=== PATIENT | female | born 2000 | race Asian ===

== ENCOUNTER 2020-12-03 10:45 | Emergency (ER) | payer BC ==
[2020-12-03] MEDS ORDERED: Oxymetazoline HCl 0.05% ( 15 ML ) ONE (11:23)
[2020-12-03 11:28] LABS: #Eosinphils 0.1 10x3/uL (0.0-0.5); #Monocytes 0.5 10x3/uL (0.0-1.1); #Neutrophils 2.7 10x3/uL (1.5-8.4); %Basophils 0.4 % (0.0-2.0); %Eosinophils 2.6 % (0.0-6.0); %Lymphocytes 36.8 % (18.0-47.0); %Monocytes 8.8 % (0.0-10.0); Hemoglobin 10.6 g/dL (12.0-15.5); Mean Corpuscular HGB CONC 31.5 g/dL (32.0-36.0); Mean Corpuscular Hemoglobin 22.8 pg (27.0-33.0); Mean Corpuscular Volume 72.4 fl (81.6-98.3); Mean Platelet Volume 10.1 fl (7.4-10.4); Platelet Count 388 10x3/uL (150-450); RBC Distribution Width 15.5 % (11.5-14.5); Red Blood Cell (RBC) Count 4.64 10x6/uL (3.90-5.03); White Blood Cell (WBC) Count 5.4 10x3/uL (3.5-10.5)
[2020-12-03 11:42] LABS: ALT (SGPT) 36 U/L (8-55); AST (SGOT) 27 U/L (5-34); Albumin 4.5 g/dL (3.5-5.0); Alkaline Phosphatase 70 U/L (40-100); Anion Gap 12 mmol/L (10-20); BUN (Urea Nitrogen) 11 mg/dL (7.0-18.7); Bilirubin, Total 0.3 mg/dL (0.2-1.2); Calc. Creatinine Clearance 0 mL/min (70-130); Calcium 9.3 mg/dL (7.8-10.44); Carbon Dioxide 25 mmol/L (22-29); Chloride 106 mmol/L (98-107); Glucose 88 mg/dL (70-105); Potassium 4.1 mmol/L (3.5-5.1); Protein, Total 7.5 g/dL (6.0-8.3); Sodium 139 mmol/L (136-145)
== END 2020-12-03 12:14 | disposition home or self-care (01) ==
LOC: CSHERS 10:45
DX: R04.0 Epistaxis (principal); D64.9 Anemia, unspecified; L40.9 Psoriasis, unspecified
CPT/HCPCS: 80053; 85025; 99283

== ENCOUNTER 2020-12-03 13:18 | Emergency (ER) | payer BC | END 2020-12-03 14:00 | disposition home or self-care (01) | LOC: CSHERS 13:18 | DX: R04.0 Epistaxis (principal); D64.9 Anemia, unspecified; L40.9 Psoriasis, unspecified | CPT/HCPCS: 30901 ==